=== PATIENT | male | born 1970 | race Caucasian/White ===

== ENCOUNTER 2021-06-21 07:01 | Outpatient (CLI) | payer BC ==
[~2021-06-21] VITALS: Ht 170.2 cm; Wt 81.8 kg
[2021-06-27] MEDS ORDERED: ATOR10TA66 PO (11:22)
[2021-06-27] MEDS ORDERED: LISI10TA25 PO (11:22)
== END 2021-06-27 11:52 | disposition home or self-care (01) ==
LOC: PREOP 07:01
PROVIDERS: ATTEND Otolaryngology Otolaryngology/Facial Plastic Surgery
DX: Z01.818 Encounter for other preprocedural examination (principal)

== ENCOUNTER 2021-07-05 05:51 | Day surgery (SDC) | payer BC ==
[2021-07-05] VITALS (9 sets, daily range): BP systolic 77–153; BP diastolic 14–97
[~2021-07-05] VITALS: Ht 170 cm; Wt 81.8 kg
[~2021-07-05 05:51] MED LIST: ATOR10TA66 PO; LISI10TA25 PO
--- OUTSIDE RECORDS SUMMARY | 2021-07-05 05:54 | XMS REPORT | Encounter Summary ---
Author Author [facility] Address Unknown Phone Unavailable Care Team Providers Care Hims Manager Name Role Phone PCP Unavailable Encounter Details Care Team Description Date Type Department Erich Gomez MD [address] [place] [address] Other specified pre-operative examinatio n 07/02/2021 [facility] al Encounter [address] [place], [place] [id number] Social History Date Tobacco Use Types Packs/Day Years Used Never Assessed Sex Assigned at Date Recorded Not on file documented as of this encounter Plan of Treatment Not on filedocumented as of this encounter Procedures Comments Procedure Name Priority Date/Time Associated Diag nosis SARS-COV-2, EDDIE Routine 07/02/2021 Other specifie d (COVID-19) 10:51 AM CDT pre-operative exami nation documented in this encounter Results * SARS-COV-2, EDDIE (COVID-19) (07/02/2021 10:51 AM CDT) SARS-CoV-2 PCR NegativeComment: This RT-PCR Negative S shira Huitron's test has been authorized by [facility] the FDA under an Emergency Use Authorization (EUA) for use by authorized laboratories. Specimen NASOPHARYNGEAL SWAB Performing Organization Address City/State/ZIP Code P peter Number [facility] [address] [place] [address] LABORATORIES [facility] [address] [place] [address] documented in this encounter Visit Diagnoses Diagnosis Other specified pre-operative examinati on documented in this encounter
--- OUTSIDE RECORDS SUMMARY | 2021-07-05 05:54 | XMS REPORT | Encounter Summary ---
Author Author [facility] Organization [facility] Address Unknown Phone Unavailable Care Team Providers Care Railroad Supervisor Of Engines Name Role Phone PCP Unavailable Encounter Details Care Team Description Date Type Department Erich Gomez MD [address] [facility] [address] [place], [place] [id number] Other specified pre-operative examinatio n (Primary Dx) 07/02[facility]2021 [facility] [address] [place], [place] [id number] Social History Date Tobacco Use Types Packs/Day Years Used Never Assessed Sex Assigned at Date Recorded Not on file documented as of this encounter Plan of Treatment Not on filedocumented as of this encounter Results * SARS-COV-2, EDDIE (COVID-19) (07/02/2021 10:51 AM CDT) SARS-CoV-2 PCR NegativeComment: This RT-PCR Negative S jeffery Huitron's test has been authorized by [facility] the FDA under an Emergency Use Authorization (EUA) for use by authorized laboratories. Specimen NASOPHARYNGEAL SWAB Performing Organization Address City/State/ZIP Code P peter Number [facility] [address] [place] [address] LABORATORIES [facility] [address] [place] [address] documented in this encounter Visit Diagnoses Diagnosis Other specified pre-operative examinati on - Primary documented in this encounter
[2021-07-05] MEDS: LACTATED RINGERS 1,000 ML IV PRN ×2 (06:39→07:44)
[2021-07-05] MEDS ORDERED: LIDOCAINE/EPI 1%-1:100,000 (XYLOCAINE) 20ML ONE (07:00)
[2021-07-05] MEDS ORDERED: PHENYLEPHRINE 0.5% NASAL SPR (NEO-SYNEPHRINE) REG ONE (07:00)
[2021-07-05] MEDS ORDERED: COCAINE HCL 4% 2 ML SYR ONE (07:00)
--- NOTE | 2021-07-05 07:00 | Progress Note-Pre Operative ---
Pre-Operative Progress Note H&P Reviewed The H&P was reviewed, patient examined and no changes noted. Date Seen by Provider: Jul 05, 2021 Time Seen by Provider: 07:00 Date H&P Reviewed: Jul 05, 2021 Time H&P Reviewed: 07:00 Pre-Operative Diagnosis: Deviated Nasal Septum, Bilat Hyper of INf Turbs TERESSA DE LA GARZA MD Jul 05, 2021 07:00
[2021-07-05] MEDS ORDERED: proPOfol 200 MG/20 ML (DIPRIVAN) VIAL IV ONE (07:01)
[2021-07-05] MEDS ORDERED: ONDANSETRON 4 MG/2 ML (SDV) Z0FRAN ONE ×3 (07:01→08:35)
[2021-07-05] MEDS ORDERED: LIDOCAINE PF 2% 5 ML (XYLOCAINE) VIAL ONE (07:01)
[2021-07-05] MEDS ORDERED: fentaNYL INJ 100 MCG/2 ML AMP ONE (07:01)
[2021-07-05] MEDS ORDERED: GLYCOPYRROLATE 0.2 MG/ML (ROBINUL) 2 ML VIAL ONE (07:01)
[2021-07-05] MEDS ORDERED: ROCURONIUM 10 MG/ML 5 ML SYRINGE IV ONE (07:01)
[2021-07-05] MEDS ORDERED: NEOSTIGMINE 3 MG/3 ML VIAL ONE (07:01)
[2021-07-05] MEDS ORDERED: MIDAZOLAM 2 MG/2 ML (VERSED) VIAL ONE (07:02)
[2021-07-05] MEDS ORDERED: SEVOFLURANE (ULTANE) 15 ML INHAL SOLN ONE (08:00)
--- NOTE | 2021-07-05 08:06 | Progress Note-Post Operative ---
Post-Operative Progess Note Surgeon (s)/Director Of Rotc (s) Surgeon TERESSA DE LA GARZA MD Director Of Rotc n/a Pre-Operative Diagnosis Deviated Nasal Septum, Bilat Hyper of INf Turbs Post-Operative Diagnosis same Post-Op Procedure Note Date of Procedure: Jul 05, 2021 Name of Procedure Performed: Nasal Septoplasty, Bilateral Red of INf Turbs Description & Findings Description and Findings: n/a Anesthesia Type get Estimated Blood Loss minimal Packing none. Specimen(s) collected/removed nasal septum TERESSA DE LA GARZA MD Jul 05, 2021 08:06
[2021-07-05] MEDS ORDERED: predniSONE 20 MG TAB PO ONE (08:15)
[2021-07-05] MEDS ORDERED: PROMETHAZINE INJ 25 MG/ML (PHENERGAN) AMP IVP PRN (08:15)
[2021-07-05] MEDS ORDERED: D5 1/2 NS W/KCL 20 MEQ/L 1,000 ML IV SCH (08:15)
[2021-07-05] MEDS ORDERED: HYDROcodone/APAP 5 MG/325 MG (LORTAB) TAB PO PRN (08:15)
[2021-07-05] MEDS ORDERED: ONDANSETRON 4 MG/2 ML (SDV) Z0FRAN IVP PRN (08:30)
[2021-07-05] MEDS ORDERED: MEPERIDINE (DEMEROL) INJ 50 MG/ML IVP ONE (08:30)
[2021-07-05] MEDS ORDERED: morphine INJ 10 MG/ML 1ML (SYR OR VIAL) IVP ONE (08:30)
--- NOTE | 2021-07-05 08:51 | Anesthesia-General Post-Op ---
General Patient Condition Mental Status/LOC: Same as Preop Cardiovascular: Satisfactory Nausea/Vomiting: Absent Respiratory: Satisfactory Pain: Controlled Complications: Absent Post Op Complications Complications Pt complains of a soar scratchy throat. This was discussed postoperatively as a known side effect. @ 0848 Looked at back of throat with tongue blade and light. No abnormality noted other than reddened throat. Follow Up Care/Instructions Patient Instructions None needed. Anesthesia/Patient Condition Patient Condition Patient stable vital signs, no apparent adverse anesthesia problems. SARAY REECE TEMPLATE MAKER Jul 05, 2021 08:51
[2021-07-05] MEDS ORDERED: ACHD5005 PO (09:16)
[2021-07-05] MEDS ORDERED: AMOX-355 PO (09:16)
== END 2021-07-05 09:55 | disposition home or self-care (01) ==
LOC: SDC 05:51
PROVIDERS: ATTEND Otolaryngology Otolaryngology/Facial Plastic Surgery
DX: J34.2 Deviated nasal septum (principal); J34.3 Hypertrophy of nasal turbinates; J31.0 Chronic rhinitis; J34.89 Other specified disorders of nose and nasal sinuses; I10 Essential (primary) hypertension; E78.5 Hyperlipidemia, unspecified; Z91.048 Other nonmedicinal substance allergy status; Z79.899 Other long term (current) drug therapy; Z11.2 Encounter for screening for other bacterial diseases
CPT/HCPCS: 87081